=== PATIENT | male | born 1990 | race Caucasian/White ===

== ENCOUNTER 2019-04-06 16:21 | Inpatient (IN) | payer OTHER ==
[~2019-04-06] VITALS: Ht 175.3 cm; Wt 66.4 kg
[2019-04-06] MEDS ORDERED: ACETAMINOPHEN 325 MG TABLET PO PRN ×2 (17:00→20:30)
[2019-04-06 17:22] VITALS: BP 113/67
[2019-04-06 20:11] VITALS: BP 111/71
[2019-04-06] MEDS ORDERED: 0.9% SODIUM CHLORIDE 10 ML SYRINGE IVP PRN (20:30)
[2019-04-06] MEDS ORDERED: ONDANSETRON HCL 4 MG/2 ML VIAL IVP PRN (20:30)
[2019-04-06] MEDS: DOCUSATE SODIUM 100 MG CAPSULE PO SCH (21:34)
[2019-04-06] MEDS: PANTOPRAZOLE SODIUM 40 MG DR TABLET PO SCH (21:34)
[2019-04-06] MEDS: ZOLPIDEM TARTRATE 5 MG TABLET PO PRN (21:34)
[2019-04-07] VITALS (7 sets, daily range): BP systolic 98–119; BP diastolic 51–77
[2019-04-07] MEDS: PANTOPRAZOLE SODIUM 40 MG DR TABLET PO SCH (09:14)
[2019-04-07] MEDS: DOCUSATE SODIUM 100 MG CAPSULE PO SCH ×2 (09:14→20:16)
[2019-04-07] MEDS: ZOLPIDEM TARTRATE 5 MG TABLET PO PRN (21:18)
[2019-04-08 05:52] VITALS: BP 104/65
[2019-04-08 07:14] VITALS: BP 117/75
[2019-04-08] MEDS: PANTOPRAZOLE SODIUM 40 MG DR TABLET PO SCH (08:36)
[2019-04-08] MEDS: DOCUSATE SODIUM 100 MG CAPSULE PO SCH ×2 (08:37→20:21)
[2019-04-08 11:22] VITALS: BP 114/62
[2019-04-08] MEDS: SERTRALINE HCL 50 MG TABLET PO SCH (15:02)
[2019-04-08 15:09] VITALS: BP 121/85
[2019-04-08 19:37] VITALS: BP 119/76
[2019-04-08] MEDS: ZOLPIDEM TARTRATE 5 MG TABLET PO PRN (22:49)
[2019-04-09 05:10] VITALS: BP 106/64
[2019-04-09 08:08] VITALS: BP 113/70
[2019-04-09] MEDS: SERTRALINE HCL 50 MG TABLET PO SCH (08:42)
[2019-04-09] MEDS: DOCUSATE SODIUM 100 MG CAPSULE PO SCH ×3 (08:42→20:12)
[2019-04-09] MEDS: PANTOPRAZOLE SODIUM 40 MG DR TABLET PO SCH (08:42)
[2019-04-09 09:31] LABS: BASOPHILS % (AUTO) 0.5 % (0.0-2.0); EOSINOPHILS % (AUTO) 9.7 % (1.0-6.0); HEMOGLOBIN 15.9 g/dL (13.5-17.5); LYMPHOCYTES # (AUTO) 3.1 K/uL (1.0-4.8); LYMPHOCYTES % (AUTO) 26.3 % (22.0-44.0); MEAN CORPUSCULAR HEMOGLOBIN 29.2 pg (26.0-34.0); MEAN CORPUSCULAR HGB CONC 34.6 G/dL (31.0-37.0); MEAN CORPUSCULAR VOLUME 84 fL (80-100); MONOCYTES # (AUTO) 0.6 K/uL (0.1-1.0); MONOCYTES % (AUTO) 4.9 % (2.0-9.0); NEUTROPHILS % (AUTO) 58.6 % (40.0-70.0); PLATELET COUNT (AUTO) 177 K/uL (150-450); RED BLOOD CELL COUNT(AUTO) 5.45 MIL/uL (4.50-5.90); RED CELL DISTRIBUTION WIDTH 12.9 % (11.5-14.5)
[2019-04-09 09:39] LABS: ANION GAP 8 mmol/L (8-16); CALCIUM, TOTAL 9.1 mg/dL (8.8-10.5); CARBON DIOXIDE 28 mmol/L (22-29); CHLORIDE 102 mmol/L (98-107); CREATININE 0.96 mg/dL (0.60-1.30); GLOMERULAR FILTR. RATE CALC > 60 mL/min (>60); GLUCOSE,RANDOM 115 mg/dL (70-110); POTASSIUM 4.3 mmol/L (3.5-5.1); SODIUM SERUM 138 mmol/L (136-145); UREA NITROGEN, BLOOD 16 mg/dL (7-18)
[2019-04-09 11:55] VITALS: BP 111/69
[2019-04-09 15:05] VITALS: BP 122/68
[2019-04-09 19:36] VITALS: BP 119/78
[2019-04-09] MEDS: OLANZapine 5 MG TABLET PO SCH (20:10)
[2019-04-09] MEDS: ZOLPIDEM TARTRATE 5 MG TABLET PO PRN (21:25)
[2019-04-10 05:35] VITALS: BP 116/72
[2019-04-10 07:36] VITALS: BP 83/50
[2019-04-10 09:43] VITALS: BP 120/70
[2019-04-10] MEDS: PANTOPRAZOLE SODIUM 40 MG DR TABLET PO SCH (10:27)
[2019-04-10] MEDS: DOCUSATE SODIUM 100 MG CAPSULE PO SCH ×2 (10:27→20:38)
[2019-04-10] MEDS: SERTRALINE HCL 50 MG TABLET PO SCH (10:27)
[2019-04-10 11:41] VITALS: BP 106/63
[2019-04-10 15:21] VITALS: BP 110/69
[2019-04-10 19:34] VITALS: BP 105/69
[2019-04-10] MEDS: OLANZapine 5 MG TABLET PO SCH (20:38)
[2019-04-11 05:19] VITALS: BP 98/55
[2019-04-11 08:01] VITALS: BP 123/70
[2019-04-11] MEDS: SERTRALINE HCL 50 MG TABLET PO SCH (08:36)
[2019-04-11] MEDS: DOCUSATE SODIUM 100 MG CAPSULE PO SCH ×2 (08:36→20:44)
[2019-04-11] MEDS: PANTOPRAZOLE SODIUM 40 MG DR TABLET PO SCH (08:36)
[2019-04-11 12:01] VITALS: BP 107/59
[2019-04-11 15:36] VITALS: BP 108/64
[2019-04-11 19:40] VITALS: BP 110/81
[2019-04-11] MEDS: OLANZapine 5 MG TABLET PO SCH (20:44)
[2019-04-11 23:55] VITALS: BP 119/73
[2019-04-12 04:35] VITALS: BP 116/77
[2019-04-12 07:23] VITALS: BP 127/81
[2019-04-12] MEDS: SERTRALINE HCL 50 MG TABLET PO SCH (08:32)
[2019-04-12] MEDS: PANTOPRAZOLE SODIUM 40 MG DR TABLET PO SCH (08:32)
[2019-04-12] MEDS: DOCUSATE SODIUM 100 MG CAPSULE PO SCH (08:32)
[2019-04-12 11:36] VITALS: BP 106/65
[2019-04-12] MEDS ORDERED: OLAN5TAB2 PO (12:38)
[2019-04-12] MEDS ORDERED: SERT50TA12 PO (12:39)
[2019-04-12 16:58] VITALS: BP 121/81
== END 2019-04-12 16:55 | DRG 881 ==
LOC: EMS 16:23 → 6S 17:25
PROVIDERS: ADMIT Internal Medicine; ATTEND Internal Medicine
DX: F32.9 Major depressive disorder, single episode, unspecified (principal); R45.851 Suicidal ideations; F41.9 Anxiety disorder, unspecified; Z59.0 Homelessness; Z79.899 Other long term (current) drug therapy; Z91.19 Patient's noncompliance with other medical treatment and regimen

== ENCOUNTER 2019-05-02 02:12 | Inpatient (IN) | payer OTHER ==
[~2019-05-02] VITALS: Ht 175.3 cm; Wt 67.7 kg
[~2019-05-02 02:12] MED LIST: OLAN5TAB2 PO; SERT50TA12 PO
[2019-05-02] MEDS ORDERED: ACETAMINOPHEN 325 MG TABLET PO PRN (02:45)
[2019-05-02] MEDS ORDERED: ZOLPIDEM TARTRATE 10 MG TABLET PO ONE (02:45)
[2019-05-02] MEDS ORDERED: ONDANSETRON HCL 4 MG/2 ML VIAL IVP PRN (02:45)
[2019-05-02 03:15] LABS: BASOPHILS % (AUTO) 0.7 % (0.0-2.0); HEMATOCRIT 40.5 % (41-53); HEMOGLOBIN 14.1 g/dL (13.5-17.5); LYMPHOCYTES # (AUTO) 3.8 K/uL (1.0-4.8); LYMPHOCYTES % (AUTO) 32.1 % (22.0-44.0); MEAN CORPUSCULAR HEMOGLOBIN 29.6 pg (26.0-34.0); MEAN CORPUSCULAR HGB CONC 34.8 G/dL (31.0-37.0); MEAN CORPUSCULAR VOLUME 85 fL (80-100); MONOCYTES # (AUTO) 0.9 K/uL (0.1-1.0); NEUTROPHILS # (AUTO) 4.5 K/uL (1.8-7.7); NEUTROPHILS % (AUTO) 37.6 % (40.0-70.0); PLATELET COUNT (AUTO) 176 K/uL (150-450); RED BLOOD CELL COUNT(AUTO) 4.76 MIL/uL (4.50-5.90); RED CELL DISTRIBUTION WIDTH 13.1 % (11.5-14.5)
[2019-05-02 03:16] LABS: EOSINOPHILS % (AUTO) 21.6 % (1.0-6.0)
[2019-05-02 03:24] LABS: ANION GAP 5 mmol/L (8-16); CALCIUM, TOTAL 8.4 mg/dL (8.8-10.5); CARBON DIOXIDE 32 mmol/L (22-29); CHLORIDE 103 mmol/L (98-107); CREATININE 0.92 mg/dL (0.60-1.30); GLOMERULAR FILTR. RATE CALC > 60 mL/min (>60); GLUCOSE,RANDOM 87 mg/dL (70-110); POTASSIUM 3.8 mmol/L (3.5-5.1); SODIUM SERUM 140 mmol/L (136-145); UREA NITROGEN, BLOOD 9 mg/dL (7-18)
[2019-05-02 03:30] LABS: ALANINE AMINOTRANSFERASE 91 U/L (12-78); ALBUMIN 3.8 g/dL (3.4-5.0); ALKALINE PHOSPHATASE 69 U/L (46-116); ASPARTATE AMINOTRANSFERASE 71 U/L (15-37); BILIRUBIN,TOTAL 0.6 mg/dL (0.1-1.0); TOTAL PROTEIN, SERUM 7.5 g/dL (6.4-8.2)
[2019-05-02 03:33] LABS: ACETAMINOPHEN < 2 mcg/mL (10-30); SALICYLATE 0.6 mg/dL (2.8-20.0)
[2019-05-02] MEDS: SERTRALINE HCL 50 MG TABLET PO SCH (15:00)
[2019-05-02 15:35] VITALS: BP 110/66
[2019-05-02 19:40] VITALS: BP 111/68
[2019-05-02] MEDS: OLANZapine 5 MG TABLET PO SCH ×2 (20:16→20:18)
[2019-05-03 00:10] VITALS: BP 108/64
[2019-05-03 08:21] VITALS: BP 114/83
[2019-05-03] MEDS: SERTRALINE HCL 50 MG TABLET PO SCH (08:38)
[2019-05-03] MEDS ORDERED: NICOTINE 14 MG/24 HOUR PATCH TD PRN (11:30)
[2019-05-03] MEDS ORDERED: ACETAMINOPHEN 325 MG TABLET PO PRN (11:30)
[2019-05-03] MEDS ORDERED: MAGNESIUM HYDROXIDE SUSPENSION 30 ML UDCUP PO PRN (11:30)
[2019-05-03] MEDS ORDERED: DOCUSATE SODIUM 100 MG CAPSULE PO PRN (11:30)
[2019-05-03] MEDS ORDERED: GuaiFENesin/D-METHORPHAN [SUGAR-FREE] 200-20MG/10 ML SYRUP UDCUP PO PRN (11:30)
[2019-05-03] MEDS ORDERED: ALBUTEROL SULFATE HFA 90 MCG/PUFF 8 GM INHALER IH PRN (11:30)
[2019-05-03] MEDS ORDERED: MAG HYDROX/AL HYDROX/SIMETH ES 30 ML SUSPENSION UDCUP PO PRN (11:30)
[2019-05-03] MEDS ORDERED: ONDANSETRON HCL 4 MG TABLET PO PRN (11:30)
[2019-05-03] MEDS ORDERED: IBUPROFEN 400 MG TABLET PO PRN (11:30)
[2019-05-03] MEDS ORDERED: CloNIDine HCL 0.1 MG TABLET PO PRN (11:30)
[2019-05-03] MEDS ORDERED: PETROLATUM,WHITE 28 GM JELLY TP PRN (11:30)
[2019-05-03] MEDS ORDERED: LOPERAMIDE HCL 2 MG CAPSULE PO PRN (11:30)
[2019-05-03 11:48] VITALS: BP 110/68
[2019-05-03 15:16] LABS: APPEARANCE,URINE CLEAR (CLEAR); BILIRUBIN,URINE NEGATIVE (NEGATIVE); GLUCOSE, URINE (UA) NEGATIVE (NEGATIVE); KETONES,URINE NEGATIVE (NEGATIVE); LEUKOCYTE ESTERASE ,URINE NEGATIVE (NEGATIVE); NITRATE,URINE NEGATIVE (NEGATIVE); OCCULT BLOOD,URINE NEGATIVE (NEGATIVE); PH,URINE 6.5 (5.0-8.0); PROTEIN,URINE NEGATIVE (NEGATIVE)
[2019-05-03 15:28] LABS: AMPHET/METH SCREEN,URINE NEGATIVE (NEGATIVE); BARBITURATE SCREEN, URINE NEGATIVE (NEGATIVE); BENZODIAZEPINES SCREEN,URINE NEGATIVE (NEGATIVE); CANNABINOID SCREEN,URINE NEGATIVE (NEGATIVE); COCAINE SCREEN,URINE NEGATIVE (NEGATIVE); METHADONE SCREEN, URINE NEGATIVE (NEGATIVE); OPIATE SCREEN,URINE NEGATIVE (NEGATIVE)
[2019-05-03 15:31] LABS: PHENCYCLIDINE SCREEN,URINE NEGATIVE (NEGATIVE)
[2019-05-03 15:43] VITALS: BP 123/78
[2019-05-03] MEDS: OLANZapine 5 MG TABLET PO SCH (20:13)
[2019-05-03 20:24] VITALS: BP 114/76
[2019-05-04] VITALS: BP 109/71
[2019-05-04 04:00] VITALS: BP 112/72
[2019-05-04 07:26] VITALS: BP 106/71
[2019-05-04] MEDS: SERTRALINE HCL 50 MG TABLET PO SCH (09:00)
[2019-05-04 11:00] VITALS: BP 108/68
[2019-05-04 11:17] LABS: BASOPHILS % (AUTO) 0.7 % (0.0-2.0); HEMATOCRIT 44.5 % (41-53); HEMOGLOBIN 15.2 g/dL (13.5-17.5); LYMPHOCYTES % (AUTO) 30.2 % (22.0-44.0); MEAN CORPUSCULAR HEMOGLOBIN 29.3 pg (26.0-34.0); MEAN CORPUSCULAR HGB CONC 34.2 G/dL (31.0-37.0); MEAN CORPUSCULAR VOLUME 86 fL (80-100); MONOCYTES # (AUTO) 0.7 K/uL (0.1-1.0); MONOCYTES % (AUTO) 7.3 % (2.0-9.0); NEUTROPHILS % (AUTO) 40.1 % (40.0-70.0); PLATELET COUNT (AUTO) 178 K/uL (150-450); RED CELL DISTRIBUTION WIDTH 12.7 % (11.5-14.5)
[2019-05-04 11:24] LABS: EOSINOPHILS % (AUTO) 21.7 % (1.0-6.0)
[2019-05-04 15:32] VITALS: BP 110/70
== END 2019-05-04 17:17 | DRG 881 ==
LOC: EMS 02:12 → 6S 02:44
PROVIDERS: ADMIT Internal Medicine; ATTEND Internal Medicine
DX: F32.9 Major depressive disorder, single episode, unspecified (principal); R45.851 Suicidal ideations; D72.829 Elevated white blood cell count, unspecified; Z87.891 Personal history of nicotine dependence
CPT/HCPCS: 80307; 87081; G0480; G0481

== ENCOUNTER 2019-05-06 03:34 | Inpatient (IN) | payer OTHER ==
[~2019-05-06] VITALS: Ht 157.5 cm; Wt 68.2 kg
[2019-05-06] MEDS ORDERED: ACETAMINOPHEN 325 MG TABLET PO PRN ×2 (04:15→08:30)
[2019-05-06] MEDS ORDERED: ONDANSETRON HCL 4 MG/2 ML VIAL IVP PRN ×2 (04:15→08:30)
[2019-05-06] MEDS ORDERED: 0.9% SODIUM CHLORIDE 10 ML SYRINGE IVP PRN ×2 (04:15→08:30)
[2019-05-06 04:32] VITALS: BP 111/76
[2019-05-06] MEDS ORDERED: INFLUENZA VIRUS VACCINE QVS 2019-20 (3YR+)/PF 60 MCG/0.5 ML SYRINGE IM ONE (05:30)
[2019-05-06] MEDS ORDERED: POTASSIUM CHLORIDE 20 MEQ ER TABLET PO PRN (08:30)
[2019-05-06] MEDS ORDERED: MAGNESIUM SULFATE 4 GM/WATER 100 ML IV PRN (08:30)
[2019-05-06] MEDS ORDERED: MAGNESIUM SULFATE 2 GM/WATER 50 ML IV PRN (08:30)
[2019-05-06] MEDS ORDERED: POTASSIUM CHL 10 MEQ/WATER 50 ML IV PRN (08:30)
[2019-05-06] MEDS ORDERED: MAGNESIUM OXIDE 400 MG TABLET PO PRN (08:30)
[2019-05-06] MEDS: DOCUSATE SODIUM 100 MG CAPSULE PO SCH ×2 (09:24→21:18)
[2019-05-06] MEDS: PANTOPRAZOLE SODIUM 40 MG DR TABLET PO SCH (09:24)
[2019-05-06 09:45] VITALS: BP 108/67
[2019-05-06 11:47] VITALS: BP 111/68
[2019-05-06] MEDS: SERTRALINE HCL 100 MG TABLET PO SCH (12:35)
[2019-05-06 19:30] VITALS: BP 117/67
[2019-05-06] MEDS: OLANZapine 5 MG TABLET PO SCH (21:18)
[2019-05-06 23:26] VITALS: BP 118/60
[2019-05-07 05:41] VITALS: BP 113/70
[2019-05-07 07:36] VITALS: BP 107/64
[2019-05-07] MEDS: DOCUSATE SODIUM 100 MG CAPSULE PO SCH ×2 (08:04→20:24)
[2019-05-07] MEDS: SERTRALINE HCL 100 MG TABLET PO SCH (08:04)
[2019-05-07] MEDS: PANTOPRAZOLE SODIUM 40 MG DR TABLET PO SCH (08:04)
[2019-05-07 12:14] VITALS: BP 107/59
[2019-05-07 15:47] VITALS: BP 123/65
[2019-05-07 15:52] VITALS: BP_SYST 123; BP_SYST 95; BP_DIAS 55; BP_DIAS 65
[2019-05-07 20:00] VITALS: BP 123/86
[2019-05-07] MEDS: OLANZapine 5 MG TABLET PO SCH (20:24)
[2019-05-08] VITALS: BP 121/76
[2019-05-08 04:00] VITALS: BP 120/85
[2019-05-08 08:00] VITALS: BP 119/68
[2019-05-08] MEDS: PANTOPRAZOLE SODIUM 40 MG DR TABLET PO SCH (08:53)
[2019-05-08] MEDS: SERTRALINE HCL 100 MG TABLET PO SCH (08:53)
[2019-05-08 15:54] VITALS: BP 124/70
[2019-05-08 20:03] VITALS: BP 126/77
[2019-05-08] MEDS: OLANZapine 5 MG TABLET PO SCH (21:00)
[2019-05-09] VITALS (7 sets, daily range): BP systolic 108–127; BP diastolic 65–75
[2019-05-09] MEDS: PANTOPRAZOLE SODIUM 40 MG DR TABLET PO SCH (08:06)
[2019-05-09] MEDS: SERTRALINE HCL 100 MG TABLET PO SCH (08:07)
[2019-05-09] MEDS: OLANZapine 5 MG TABLET PO SCH (21:00)
[2019-05-10 06:00] VITALS: BP 124/69
[2019-05-10 07:31] VITALS: BP 129/86
[2019-05-10] MEDS: PANTOPRAZOLE SODIUM 40 MG DR TABLET PO SCH (08:09)
[2019-05-10] MEDS: SERTRALINE HCL 100 MG TABLET PO SCH (08:10)
[2019-05-10 11:39] VITALS: BP 134/70
[2019-05-10 15:09] VITALS: BP 124/81
[2019-05-10 19:35] VITALS: BP 123/75
[2019-05-10] MEDS: OLANZapine 5 MG TABLET PO SCH (21:00)
[2019-05-10] MEDS: DOCUSATE SODIUM 100 MG CAPSULE PO PRN (22:29)
[2019-05-10 23:50] VITALS: BP 115/63
[2019-05-11 04:50] VITALS: BP 105/60
[2019-05-11 07:42] VITALS: BP 122/87
[2019-05-11] MEDS: PANTOPRAZOLE SODIUM 40 MG DR TABLET PO SCH (08:22)
[2019-05-11] MEDS: SERTRALINE HCL 100 MG TABLET PO SCH (08:22)
[2019-05-11] MEDS: OLANZapine 5 MG TABLET PO SCH ×2 (11:10→22:30)
[2019-05-11 11:26] VITALS: BP 127/84
[2019-05-11 15:17] VITALS: BP 127/78
[2019-05-11 19:56] VITALS: BP 109/70
[2019-05-12 00:13] VITALS: BP 116/67
[2019-05-12 05:02] VITALS: BP 114/73
[2019-05-12 07:11] VITALS: BP 118/75
[2019-05-12] MEDS: OLANZapine 5 MG TABLET PO SCH ×2 (09:22→20:36)
[2019-05-12] MEDS: PANTOPRAZOLE SODIUM 40 MG DR TABLET PO SCH (09:22)
[2019-05-12] MEDS: SERTRALINE HCL 100 MG TABLET PO SCH (09:22)
[2019-05-12 11:05] VITALS: BP 112/72
[2019-05-12 16:46] VITALS: BP 109/73
[2019-05-12] MEDS: ZOLPIDEM TARTRATE 5 MG TABLET PO PRN (20:37)
[2019-05-12 23:08] VITALS: BP 112/71
[2019-05-13] MEDS: PANTOPRAZOLE SODIUM 40 MG DR TABLET PO SCH (08:08)
[2019-05-13] MEDS: OLANZapine 5 MG TABLET PO SCH ×2 (08:08→19:55)
[2019-05-13] MEDS: SERTRALINE HCL 100 MG TABLET PO SCH (08:08)
[2019-05-13 08:28] VITALS: BP 118/75
[2019-05-13 11:10] VITALS: BP 114/67
[2019-05-13 15:30] VITALS: BP 124/68
[2019-05-13 19:29] VITALS: BP 127/83
[2019-05-13 23:18] VITALS: BP 128/78
[2019-05-13] MEDS: ZOLPIDEM TARTRATE 5 MG TABLET PO PRN (23:20)
[2019-05-14 05:59] VITALS: BP 111/76
[2019-05-14 07:55] VITALS: BP 109/77
[2019-05-14] MEDS: OLANZapine 5 MG TABLET PO SCH ×2 (08:13→20:07)
[2019-05-14] MEDS: PANTOPRAZOLE SODIUM 40 MG DR TABLET PO SCH (08:13)
[2019-05-14] MEDS: SERTRALINE HCL 100 MG TABLET PO SCH (08:13)
[2019-05-14 11:43] VITALS: BP 106/70
[2019-05-14 15:21] VITALS: BP 125/75
[2019-05-14 20:05] VITALS: BP 130/72
[2019-05-14] MEDS: ZOLPIDEM TARTRATE 5 MG TABLET PO PRN (20:06)
[2019-05-14 23:35] VITALS: BP 109/61
[2019-05-15 05:23] VITALS: BP 120/72
[2019-05-15 07:41] VITALS: BP 130/66
[2019-05-15] MEDS: PANTOPRAZOLE SODIUM 40 MG DR TABLET PO SCH (08:04)
[2019-05-15] MEDS: OLANZapine 5 MG TABLET PO SCH ×2 (08:04→20:15)
[2019-05-15] MEDS: SERTRALINE HCL 100 MG TABLET PO SCH (08:04)
[2019-05-15 11:15] VITALS: BP 121/77
[2019-05-15 15:31] VITALS: BP 116/74
[2019-05-15] MEDS: ZOLPIDEM TARTRATE 5 MG TABLET PO PRN (20:15)
[2019-05-15 20:38] VITALS: BP 122/81
[2019-05-15 23:15] VITALS: BP 118/76
[2019-05-16 05:20] VITALS: BP 126/76
[2019-05-16 08:08] VITALS: BP 122/79
[2019-05-16] MEDS: OLANZapine 5 MG TABLET PO SCH ×2 (08:26→20:12)
[2019-05-16] MEDS: PANTOPRAZOLE SODIUM 40 MG DR TABLET PO SCH (08:26)
[2019-05-16] MEDS: SERTRALINE HCL 100 MG TABLET PO SCH (08:26)
[2019-05-16 11:36] VITALS: BP 106/63
[2019-05-16 15:03] VITALS: BP 112/69
[2019-05-16 19:17] VITALS: BP 118/75
[2019-05-16] MEDS: ZOLPIDEM TARTRATE 5 MG TABLET PO PRN (20:12)
[2019-05-16 23:03] VITALS: BP 115/71
[2019-05-17 05:45] VITALS: BP 115/74
[2019-05-17] MEDS: SERTRALINE HCL 100 MG TABLET PO SCH (07:58)
[2019-05-17] MEDS: OLANZapine 5 MG TABLET PO SCH ×2 (07:58→20:10)
[2019-05-17] MEDS: PANTOPRAZOLE SODIUM 40 MG DR TABLET PO SCH (07:58)
[2019-05-17 11:22] VITALS: BP 105/62
[2019-05-17 15:08] VITALS: BP 124/69
[2019-05-17 19:17] VITALS: BP 137/77
[2019-05-17] MEDS: DOCUSATE SODIUM 100 MG CAPSULE PO PRN (21:26)
[2019-05-18] VITALS (7 sets, daily range): BP systolic 103–139; BP diastolic 57–80
[2019-05-18] MEDS: PANTOPRAZOLE SODIUM 40 MG DR TABLET PO SCH (09:26)
[2019-05-18] MEDS: SERTRALINE HCL 100 MG TABLET PO SCH (09:26)
[2019-05-18] MEDS: OLANZapine 5 MG TABLET PO SCH ×2 (09:27→20:10)
[2019-05-19 05:23] VITALS: BP 123/69
[2019-05-19 07:32] VITALS: BP 118/80
[2019-05-19] MEDS: SERTRALINE HCL 100 MG TABLET PO SCH (08:04)
[2019-05-19] MEDS: OLANZapine 5 MG TABLET PO SCH (08:04)
[2019-05-19] MEDS: PANTOPRAZOLE SODIUM 40 MG DR TABLET PO SCH (08:04)
[2019-05-19 12:16] VITALS: BP 116/72
[2019-05-19 16:01] VITALS: BP 137/78
== END 2019-05-19 18:18 | DRG 885 ==
LOC: EMS 03:34 → 6S 03:58
PROVIDERS: ADMIT Internal Medicine; ATTEND Internal Medicine
DX: F20.9 Schizophrenia, unspecified (principal); T71.162A Asphyxiation due to hanging, intentional self-harm, initial encounter; R45.851 Suicidal ideations; Z87.891 Personal history of nicotine dependence; X83.8XXA Intentional self-harm by other specified means, initial encounter; Y93.89 Activity, other specified; Y92.89 Other specified places as the place of occurrence of the external cause; Y99.8 Other external cause status; Z28.21 Immunization not carried out because of patient refusal

== ENCOUNTER 2019-05-29 06:11 | Inpatient (IN) | payer OTHER ==
[~2019-05-29] VITALS: Ht 175.3 cm; Wt 68.2 kg
[2019-05-29 07:00] LABS: APPEARANCE,URINE CLEAR (CLEAR); BILIRUBIN,URINE NEGATIVE (NEGATIVE); GLUCOSE, URINE (UA) NEGATIVE (NEGATIVE); KETONES,URINE NEGATIVE (NEGATIVE); LEUKOCYTE ESTERASE ,URINE NEGATIVE (NEGATIVE); NITRATE,URINE NEGATIVE (NEGATIVE); OCCULT BLOOD,URINE NEGATIVE (NEGATIVE); PH,URINE 6.5 (5.0-8.0); PROTEIN,URINE NEGATIVE (NEGATIVE)
[2019-05-29] MEDS ORDERED: ACETAMINOPHEN 325 MG TABLET PO PRN ×2 (07:00→11:00)
[2019-05-29] MEDS ORDERED: 0.9% SODIUM CHLORIDE 10 ML SYRINGE IVP PRN (07:00)
[2019-05-29] MEDS ORDERED: ONDANSETRON HCL 4 MG/2 ML VIAL IVP PRN (07:00)
[2019-05-29 07:10] LABS: AMPHET/METH SCREEN,URINE NEGATIVE (NEGATIVE); BARBITURATE SCREEN, URINE NEGATIVE (NEGATIVE); BENZODIAZEPINES SCREEN,URINE NEGATIVE (NEGATIVE); CANNABINOID SCREEN,URINE NEGATIVE (NEGATIVE); COCAINE SCREEN,URINE NEGATIVE (NEGATIVE); METHADONE SCREEN, URINE NEGATIVE (NEGATIVE); OPIATE SCREEN,URINE NEGATIVE (NEGATIVE); PHENCYCLIDINE SCREEN,URINE NEGATIVE (NEGATIVE)
[2019-05-29 08:58] VITALS: BP 117/76
[2019-05-29 10:14] LABS: AMPHET/METH SCREEN,URINE NEGATIVE (NEGATIVE); BARBITURATE SCREEN, URINE NEGATIVE (NEGATIVE); BENZODIAZEPINES SCREEN,URINE NEGATIVE (NEGATIVE); CANNABINOID SCREEN,URINE NEGATIVE (NEGATIVE); COCAINE SCREEN,URINE NEGATIVE (NEGATIVE); METHADONE SCREEN, URINE NEGATIVE (NEGATIVE); OPIATE SCREEN,URINE NEGATIVE (NEGATIVE)
[2019-05-29 10:16] LABS: PHENCYCLIDINE SCREEN,URINE NEGATIVE (NEGATIVE)
[2019-05-29] MEDS ORDERED: ONDANSETRON HCL 4 MG TABLET PO PRN (11:00)
[2019-05-29] MEDS ORDERED: CloNIDine HCL 0.1 MG TABLET PO PRN (11:00)
[2019-05-29] MEDS ORDERED: PETROLATUM,WHITE 28 GM JELLY TP PRN (11:00)
[2019-05-29] MEDS ORDERED: GuaiFENesin/D-METHORPHAN [SUGAR-FREE] 200-20MG/10 ML SYRUP UDCUP PO PRN (11:00)
[2019-05-29] MEDS ORDERED: NICOTINE 14 MG/24 HOUR PATCH TD PRN (11:00)
[2019-05-29] MEDS ORDERED: ALBUTEROL SULFATE HFA 90 MCG/PUFF 8 GM INHALER IH PRN (11:00)
[2019-05-29] MEDS ORDERED: MAGNESIUM HYDROXIDE SUSPENSION 30 ML UDCUP PO PRN (11:00)
[2019-05-29] MEDS ORDERED: IBUPROFEN 400 MG TABLET PO PRN (11:00)
[2019-05-29] MEDS ORDERED: MAG HYDROX/AL HYDROX/SIMETH ES 30 ML SUSPENSION UDCUP PO PRN (11:00)
[2019-05-29] MEDS ORDERED: LOPERAMIDE HCL 2 MG CAPSULE PO PRN (11:00)
[2019-05-29 12:09] VITALS: BP 110/56
[2019-05-29 16:06] VITALS: BP 117/71
[2019-05-29 19:30] VITALS: BP 123/66
[2019-05-30 00:54] LABS: APPEARANCE,URINE CLEAR (CLEAR); BILIRUBIN,URINE NEGATIVE (NEGATIVE); GLUCOSE, URINE (UA) NEGATIVE (NEGATIVE); KETONES,URINE NEGATIVE (NEGATIVE); LEUKOCYTE ESTERASE ,URINE NEGATIVE (NEGATIVE); NITRATE,URINE NEGATIVE (NEGATIVE); OCCULT BLOOD,URINE NEGATIVE (NEGATIVE); PH,URINE 6.5 (5.0-8.0); PROTEIN,URINE NEGATIVE (NEGATIVE); UROBILINOGEN,URINE 0.2 mg/dL (<=1.0)
[2019-05-30 01:00] LABS: AMPHET/METH SCREEN,URINE NEGATIVE (NEGATIVE); BARBITURATE SCREEN, URINE NEGATIVE (NEGATIVE); BENZODIAZEPINES SCREEN,URINE NEGATIVE (NEGATIVE); CANNABINOID SCREEN,URINE NEGATIVE (NEGATIVE); COCAINE SCREEN,URINE NEGATIVE (NEGATIVE); METHADONE SCREEN, URINE NEGATIVE (NEGATIVE); OPIATE SCREEN,URINE NEGATIVE (NEGATIVE); PHENCYCLIDINE SCREEN,URINE NEGATIVE (NEGATIVE)
[2019-05-30 06:00] VITALS: BP 109/63
[2019-05-30 08:26] VITALS: BP 125/75
[2019-05-30] MEDS: ESCITALOPRAM OXALATE 10 MG TABLET PO SCH (17:30)
[2019-05-30] MEDS ORDERED: SERT100T12 PO (17:31)
[2019-05-30 19:56] VITALS: BP 113/66
[2019-05-30] MEDS: OLANZapine 10 MG TABLET PO SCH (21:00)
[2019-05-30] MEDS: DOCUSATE SODIUM 100 MG CAPSULE PO PRN (21:15)
[2019-05-30] MEDS: MELATONIN 5 MG TABLET PO PRN (22:37)
[2019-05-30 23:30] VITALS: BP 108/68
[2019-05-31 04:30] VITALS: BP 113/88
[2019-05-31] MEDS ORDERED: LORazepam 2 MG/ML VIAL IM ONE (06:45)
[2019-05-31 07:25] VITALS: BP 118/57
[2019-05-31] MEDS: ESCITALOPRAM OXALATE 10 MG TABLET PO SCH (08:11)
[2019-05-31 16:05] VITALS: BP 113/62
[2019-05-31 19:39] VITALS: BP 117/70
[2019-05-31] MEDS: OLANZapine 10 MG TABLET PO SCH (20:38)
[2019-05-31] MEDS: MELATONIN 5 MG TABLET PO PRN (20:38)
[2019-06-01 05:58] VITALS: BP 109/71
[2019-06-01 07:40] VITALS: BP 116/66
[2019-06-01] MEDS: ESCITALOPRAM OXALATE 10 MG TABLET PO SCH (08:21)
[2019-06-01 11:52] VITALS: BP 115/66
[2019-06-01 15:35] VITALS: BP 111/63
[2019-06-01 19:27] VITALS: BP 123/64
[2019-06-01] MEDS: MELATONIN 5 MG TABLET PO PRN (20:27)
[2019-06-01] MEDS: OLANZapine 10 MG TABLET PO SCH (20:27)
[2019-06-02 04:30] VITALS: BP 119/69
[2019-06-02] MEDS: ESCITALOPRAM OXALATE 10 MG TABLET PO SCH (08:36)
[2019-06-02 08:43] VITALS: BP 105/62
[2019-06-02] MEDS: DOCUSATE SODIUM 100 MG CAPSULE PO PRN ×2 (14:57→20:39)
[2019-06-02 16:06] VITALS: BP 109/71
[2019-06-02 20:21] VITALS: BP 119/73
[2019-06-02] MEDS: OLANZapine 10 MG TABLET PO SCH (20:39)
[2019-06-02] MEDS: MELATONIN 5 MG TABLET PO PRN (20:39)
[2019-06-03 08:10] VITALS: BP 101/55
[2019-06-03] MEDS: CITALOPRAM HYDROBROMIDE 20 MG TABLET PO SCH (09:06)
[2019-06-03 11:17] VITALS: BP 105/58
[2019-06-03 15:36] VITALS: BP 114/65
[2019-06-03 19:30] VITALS: BP 126/69
[2019-06-03] MEDS: OLANZapine 10 MG TABLET PO SCH (19:48)
[2019-06-03] MEDS: MELATONIN 5 MG TABLET PO PRN (19:49)
[2019-06-04 05:45] VITALS: BP 113/72
[2019-06-04] MEDS: CITALOPRAM HYDROBROMIDE 20 MG TABLET PO SCH (09:00)
[2019-06-04 10:00] VITALS: BP 98/50
[2019-06-04 16:07] VITALS: BP 115/62
[2019-06-04 19:15] VITALS: BP 123/72
[2019-06-04] MEDS: OLANZapine 10 MG TABLET PO SCH (21:00)
[2019-06-05 06:00] VITALS: BP 117/70
[2019-06-05 07:24] VITALS: BP 111/70
[2019-06-05] MEDS: CITALOPRAM HYDROBROMIDE 20 MG TABLET PO SCH (07:50)
[2019-06-05 15:06] VITALS: BP 123/77
[2019-06-05 19:24] VITALS: BP 126/74
[2019-06-05] MEDS: OLANZapine 10 MG TABLET PO SCH (21:00)
[2019-06-05] MEDS: MELATONIN 5 MG TABLET PO PRN (21:41)
[2019-06-06 05:12] VITALS: BP 112/75
[2019-06-06 07:25] VITALS: BP 110/68
[2019-06-06] MEDS: CITALOPRAM HYDROBROMIDE 20 MG TABLET PO SCH (08:02)
[2019-06-06] MEDS ORDERED: CITA-106 PO (16:37)
[2019-06-06] MEDS ORDERED: OLAN10TA3 PO (16:37)
[2019-06-06 17:08] VITALS: BP 125/75
== END 2019-06-06 20:08 | DRG 880 ==
LOC: EMS 06:11 → 6S 06:49
PROVIDERS: ADMIT Psychiatry & Neurology Child & Adolescent Psychiatry; ATTEND Psychiatry & Neurology Child & Adolescent Psychiatry
DX: R45.851 Suicidal ideations (principal); S00.93XA Contusion of unspecified part of head, initial encounter; F41.9 Anxiety disorder, unspecified; Z87.891 Personal history of nicotine dependence; Z91.19 Patient's noncompliance with other medical treatment and regimen; X58.XXXA Exposure to other specified factors, initial encounter; Y93.89 Activity, other specified; Y92.89 Other specified places as the place of occurrence of the external cause; Y99.8 Other external cause status
CPT/HCPCS: 80307

== ENCOUNTER 2019-12-23 14:20 | Inpatient (IN) | payer OTHER ==
[~2019-12-23] VITALS: Ht 160 cm; Wt 78.0 kg
[~2019-12-23 14:20] MED LIST changes: +CITA-144 PO; +OLAN10TA3 PO; -OLAN5TAB2 PO; -SERT50TA12 PO
[2019-12-23 15:38] LABS: BASOPHILS % (AUTO) 0.5 % (0.0-2.0); HEMATOCRIT 46.9 % (41-53); HEMOGLOBIN 16.4 g/dL (13.5-17.5); LYMPHOCYTES # (AUTO) 2.1 K/uL (1.0-4.8); LYMPHOCYTES % (AUTO) 20.7 % (22.0-44.0); MEAN CORPUSCULAR HEMOGLOBIN 29.6 pg (26.0-34.0); MEAN CORPUSCULAR HGB CONC 34.9 G/dL (31.0-37.0); MEAN CORPUSCULAR VOLUME 85 fL (80-100); MONOCYTES # (AUTO) 0.6 K/uL (0.1-1.0); MONOCYTES % (AUTO) 6.5 % (2.0-9.0); NEUTROPHILS # (AUTO) 6.6 K/uL (1.8-7.7); NEUTROPHILS % (AUTO) 66.3 % (40.0-70.0); PLATELET COUNT (AUTO) 212 K/uL (150-450); RED BLOOD CELL COUNT(AUTO) 5.54 MIL/uL (4.50-5.90); RED CELL DISTRIBUTION WIDTH 12.8 % (11.5-14.5)
[2019-12-23] MEDS ORDERED: ONDANSETRON HCL 4 MG TABLET PO PRN (15:45)
[2019-12-23] MEDS ORDERED: NICOTINE 14 MG/24 HOUR PATCH TD PRN (15:45)
[2019-12-23] MEDS ORDERED: CloNIDine HCL 0.1 MG TABLET PO PRN (15:45)
[2019-12-23] MEDS ORDERED: MAG HYDROX/AL HYDROX/SIMETH ES 30 ML SUSPENSION UDCUP PO PRN (15:45)
[2019-12-23] MEDS ORDERED: ALBUTEROL SULFATE HFA 90 MCG/PUFF 8 GM INHALER IH PRN (15:45)
[2019-12-23] MEDS ORDERED: LOPERAMIDE HCL 2 MG CAPSULE PO PRN (15:45)
[2019-12-23] MEDS ORDERED: DOCUSATE SODIUM 100 MG CAPSULE PO PRN (15:45)
[2019-12-23] MEDS ORDERED: IBUPROFEN 400 MG TABLET PO PRN (15:45)
[2019-12-23] MEDS ORDERED: ACETAMINOPHEN 325 MG TABLET PO PRN (15:45)
[2019-12-23] MEDS ORDERED: MAGNESIUM HYDROXIDE SUSPENSION 30 ML UDCUP PO PRN (15:45)
[2019-12-23] MEDS ORDERED: GuaiFENesin/D-METHORPHAN [SUGAR-FREE] 200-20MG/10 ML SYRUP UDCUP PO PRN (15:45)
[2019-12-23] MEDS ORDERED: PETROLATUM,WHITE 28 GM JELLY TP PRN (15:45)
[2019-12-23 15:47] LABS: ANION GAP 10 mmol/L (8-16); CALCIUM, TOTAL 9.4 mg/dL (8.8-10.5); CARBON DIOXIDE 28 mmol/L (22-29); CHLORIDE 104 mmol/L (98-107); CREATININE 0.99 mg/dL (0.60-1.30); GLOMERULAR FILTR. RATE CALC > 60 mL/min (>60); GLUCOSE,RANDOM 103 mg/dL (70-110); POTASSIUM 4.5 mmol/L (3.5-5.1); SODIUM SERUM 142 mmol/L (136-145); UREA NITROGEN, BLOOD 15 mg/dL (7-18)
[2019-12-23 15:55] LABS: ALANINE AMINOTRANSFERASE 71 U/L (12-78); ALBUMIN 4.7 g/dL (3.4-5.0); ALKALINE PHOSPHATASE 63 U/L (46-116); ASPARTATE AMINOTRANSFERASE 40 U/L (15-37); TOTAL PROTEIN, SERUM 8.8 g/dL (6.4-8.2)
[2019-12-23 18:06] VITALS: BP 124/76
[2019-12-23 19:45] VITALS: BP 130/73
[2019-12-23 20:46] LABS: AMPHET/METH SCREEN,URINE NEGATIVE (NEGATIVE); BARBITURATE SCREEN, URINE NEGATIVE (NEGATIVE); BENZODIAZEPINES SCREEN,URINE NEGATIVE (NEGATIVE); CANNABINOID SCREEN,URINE NEGATIVE (NEGATIVE); COCAINE SCREEN,URINE NEGATIVE (NEGATIVE); METHADONE SCREEN, URINE NEGATIVE (NEGATIVE); OPIATE SCREEN,URINE NEGATIVE (NEGATIVE)
[2019-12-23 20:48] LABS: PHENCYCLIDINE SCREEN,URINE NEGATIVE (NEGATIVE)
[2019-12-24 06:04] VITALS: BP 112/67
[2019-12-24 07:19] VITALS: BP 115/78
[2019-12-24 15:22] VITALS: BP 112/67
[2019-12-24] MEDS ORDERED: HALOPERIDOL LACTATE 5 MG/ML VIAL IM PRN (16:15)
[2019-12-24] MEDS ORDERED: LORazepam 2 MG/ML VIAL IM PRN (16:15)
[2019-12-24 19:40] VITALS: BP 120/64
[2019-12-24] MEDS: BENZTROPINE MESYLATE 1 MG TABLET PO SCH (20:12)
[2019-12-24] MEDS: LITHIUM CARBONATE 300 MG CAPSULE PO SCH (20:13)
[2019-12-24] MEDS: HALOPERIDOL 5 MG TABLET PO SCH (20:13)
[2019-12-24] MEDS: CIPROFLOXACIN HCL 0.2%/HYDROCORT 1% 10 ML OTIC SUSPENSION AU SCH (20:13)
[2019-12-24] MEDS: DIVALPROEX SODIUM 500 MG DR TABLET PO SCH (20:17)
[2019-12-25 07:54] VITALS: BP 111/67
[2019-12-25] MEDS: LITHIUM CARBONATE 300 MG CAPSULE PO SCH ×2 (08:37→20:39)
[2019-12-25] MEDS: CIPROFLOXACIN HCL 0.2%/HYDROCORT 1% 10 ML OTIC SUSPENSION AU SCH ×2 (08:38→20:39)
[2019-12-25] MEDS: DIVALPROEX SODIUM 500 MG DR TABLET PO SCH ×3 (08:38→20:40)
[2019-12-25] MEDS: BENZTROPINE MESYLATE 1 MG TABLET PO SCH ×2 (08:38→20:39)
[2019-12-25 16:00] VITALS: BP 113/65
[2019-12-25] MEDS: HALOPERIDOL 5 MG TABLET PO SCH (20:39)
[2019-12-25 20:45] VITALS: BP 121/67
[2019-12-26 05:30] VITALS: BP 108/60
[2019-12-26 08:00] VITALS: BP 105/62
[2019-12-26] MEDS: LITHIUM CARBONATE 300 MG CAPSULE PO SCH ×2 (08:01→19:54)
[2019-12-26] MEDS: BENZTROPINE MESYLATE 1 MG TABLET PO SCH ×2 (08:01→19:54)
[2019-12-26] MEDS: CIPROFLOXACIN HCL 0.2%/HYDROCORT 1% 10 ML OTIC SUSPENSION AU SCH ×2 (08:02→19:54)
[2019-12-26] MEDS: DIVALPROEX SODIUM 500 MG DR TABLET PO SCH ×2 (08:03→19:54)
[2019-12-26 12:00] VITALS: BP 110/67
[2019-12-26 13:59] VITALS: BP 112/70
[2019-12-26 19:23] VITALS: BP 110/79
[2019-12-26] MEDS: HALOPERIDOL 5 MG TABLET PO SCH (19:54)
[2019-12-27 05:12] VITALS: BP 112/62
[2019-12-27 08:04] VITALS: BP 109/72
[2019-12-27] MEDS: BENZTROPINE MESYLATE 1 MG TABLET PO SCH ×2 (08:29→21:00)
[2019-12-27] MEDS: LITHIUM CARBONATE 300 MG CAPSULE PO SCH ×2 (08:29→21:00)
[2019-12-27] MEDS: DIVALPROEX SODIUM 500 MG DR TABLET PO SCH ×2 (08:29→21:00)
[2019-12-27] MEDS: CIPROFLOXACIN HCL 0.2%/HYDROCORT 1% 10 ML OTIC SUSPENSION AU SCH ×2 (08:32→20:13)
[2019-12-27 15:02] VITALS: BP 114/74
[2019-12-27 19:25] VITALS: BP 116/78
[2019-12-27] MEDS: HALOPERIDOL 5 MG TABLET PO SCH (21:00)
[2019-12-28 04:48] VITALS: BP 113/63
[2019-12-28 08:06] VITALS: BP 120/82
[2019-12-28] MEDS: CIPROFLOXACIN HCL 0.2%/HYDROCORT 1% 10 ML OTIC SUSPENSION AU SCH (08:11)
[2019-12-28] MEDS: LITHIUM CARBONATE 300 MG CAPSULE PO SCH (08:12)
[2019-12-28] MEDS: BENZTROPINE MESYLATE 1 MG TABLET PO SCH (08:12)
[2019-12-28] MEDS: DIVALPROEX SODIUM 500 MG DR TABLET PO SCH (08:12)
== END 2019-12-28 18:20 | DRG 885 ==
LOC: EMS 14:24 → 6S 15:41
PROVIDERS: ADMIT Internal Medicine; ATTEND Internal Medicine
DX: F20.9 Schizophrenia, unspecified (principal); R45.851 Suicidal ideations; E80.6 Other disorders of bilirubin metabolism; F32.9 Major depressive disorder, single episode, unspecified; S00.83XA Contusion of other part of head, initial encounter; Z87.891 Personal history of nicotine dependence; S00.93XA Contusion of unspecified part of head, initial encounter; X58.XXXA Exposure to other specified factors, initial encounter; Y93.89 Activity, other specified; Y92.89 Other specified places as the place of occurrence of the external cause; Y99.8 Other external cause status
CPT/HCPCS: G0480